=== PATIENT | male | born 1940 | race African-American/Black ===

== ENCOUNTER 2020-10-07 10:42 | Inpatient (IN) | payer BC ==
[~2020-10-07] VITALS: Ht 188 cm; Wt 90.7 kg
[~2020-10-07 10:42] MED LIST: AMLO10TA80 PO; ATOR-2 MT; GLIP10TA10 PO; LISI-649 MT; METF-416 PO; METO25TA6 MT
[2020-10-07] MEDS ORDERED: TRAZODONE (10:49)
[2020-10-07] MEDS ORDERED: SODIUM CHLORIDE 0.9% 1,000 ML IV ONE (13:00)
[2020-10-07 14:35] LABS: CHLORIDE 103 mEq/L (98-107)
[2020-10-07 14:38] LABS: INR 1.1; PROTHROMBIN TIME 11.9 sec (9.6-11.0)
[2020-10-07 14:39] LABS: ETHANOL BLOOD < 10 mg/dL
[2020-10-07 14:44] LABS: BASOPHILS % 0.2 % (0.0-2.0); HEMATOCRIT. 30.7 % (42.0-52.0); HEMOGLOBIN. 9.6 g/dL (14.0-18.0); LYMPHOCYTES % 7.3 % (20.0-50.0); MEAN CORPUSCULAR HEMOGLOBIN 28.4 pg (28.0-32.0); MEAN CORPUSCULAR VOLUME 90.9 fL (80.0-94.0); MEAN PLATELET VOLUME 9.3 fl (7.4-10.4); MONOCYTES % 4.8 % (2.0-8.0); NEUTROPHILS % 87.7 % (40.0-76.0); PLATELET 251 x1000/uL (130-400); RED BLOOD CELL COUNT 3.38 mill/uL (4.7-6.1); RED CELL DISTRIBUTION WIDTH 17.3 % (11.6-14.6)
[2020-10-07] MEDS ORDERED: ONDANSETRON 4MG ODT PO ONE (15:15)
[2020-10-07] MEDS ORDERED: CEFTRIAXONE 1 G PREMIX 50 ML IV ONE (16:45)
[2020-10-07] MEDS ORDERED: AZITHROMYCIN 500 MG in DEXT 5% WATER 250 ML IV SCH (16:45)
[2020-10-07] MEDS ORDERED: AZITHROMYCIN 500 MG in SODIUM CHLORIDE 0.9% 250 ML IV SCH (17:04)
[2020-10-07] MEDS ORDERED: ACETAMINOPHEN 650MG SUPP PR PRN (19:30)
[2020-10-07] MEDS ORDERED: DOCUSATE SODIUM 100MG CAPSULE PO PRN (19:30)
[2020-10-07] MEDS ORDERED: DIPHENHYDRAMINE 50MG/ML VIAL IV PRN (19:30)
[2020-10-07] MEDS ORDERED: NA PHOS,M-B/NA PHOS,DI-BA ENEMA 118ML PR PRN (19:30)
[2020-10-07] MEDS ORDERED: INSULIN REGULAR (HUMULIN R) 300UNITS/3ML VIAL IV NR (19:30)
[2020-10-07] MEDS ORDERED: DEXTROSE 50% WATER 50ML SYRINGE IV NR (19:30)
[2020-10-07] MEDS ORDERED: GUAIFENESIN 200MG/10ML SUGAR FREE UDC PO PRN (19:30)
[2020-10-07] MEDS ORDERED: DEXTROSE 50% WATER 50ML SYRINGE IV PRN (19:30)
[2020-10-07] MEDS ORDERED: CLONIDINE 0.1MG TABLET PO PRN (19:30)
[2020-10-07] MEDS ORDERED: LORAZEPAM 0.5MG TABLET PO PRN (19:30)
[2020-10-07] MEDS ORDERED: SODIUM BICARBONATE 8.4% 1 MEQ/ML 50ML SYR IV NR (19:30)
[2020-10-07] MEDS ORDERED: MAGNESIUM/ALUMINUM HYDROXIDE/SIMETHICONE 30ML UDC PO PRN (19:30)
[2020-10-07] MEDS ORDERED: CALCIUM GLUCONATE 1GM PREMIX 50 ML IV NR (21:00)
[2020-10-07] MEDS: MORPHINE SULFATE 2 MG/ML CPJ (NOT FOR IM USE) IV PRN (22:21)
[2020-10-07] MEDS: ONDANSETRON HCL 4MG/2ML INJ IV PRN (22:21)
[2020-10-07 22:57] LABS: BG BASE EXCESS -3.4 mmol/L (-2.0-2.0); BG CARBOXYHEMOGLOBIN 0.1 % (0.5-1.5); BG DEOXYHEMOGLOBIN 7.9 % (0.0-5.0); BG FRACTION INSPIRED OXYGEN 21; BG HCO3 ACT 19.9 mmol/L (22.0-26.0); BG METHEMOGLOBIN 0.2 % (0.0-1.5); BG OXYGEN SATURATION 92.1 % (92.0-98.5); BG OXYHEMOGLOBIN 91.8 % (94.0-97.0); BG PCO2 30.7 mmHg (35.0-45.0); BG PH 7.429 (7.350-7.450); BG PO2 68.2 mmHg (75.0-100.0); BG SAMPLE SITE RIGHT RADIAL; BG VENT MODE ROOM AIR
[2020-10-08 03:11] LABS: CREATINE KINASE MB FRACTION 6.3 ng/mL (0.5-3.6)
[2020-10-08 06:23] LABS: CHLORIDE 107 mEq/L (98-107)
[2020-10-08 06:24] LABS: BASOPHILS % 0.5 % (0.0-2.0); EOSINOPHILS % 0.2 % (0.0-5.0); HEMATOCRIT. 27.9 % (42.0-52.0); HEMOGLOBIN. 9.1 g/dL (14.0-18.0); LYMPHOCYTES % 11.1 % (20.0-50.0); MEAN CORPUSCULAR HEMOGLOBIN 29.2 pg (28.0-32.0); MEAN CORPUSCULAR VOLUME 89.1 fL (80.0-94.0); MONOCYTES % 4.5 % (2.0-8.0); NEUTROPHILS % 83.7 % (40.0-76.0); RED BLOOD CELL COUNT 3.13 mill/uL (4.7-6.1); RED CELL DISTRIBUTION WIDTH 17.3 % (11.6-14.6)
[2020-10-08 06:33] LABS: CREATINE KINASE MB FRACTION 6.5 ng/mL (0.5-3.6)
[2020-10-08 06:34] LABS: LDL CHOLESTEROL 60 mg/dL (5-100)
[2020-10-08 06:35] LABS: HDL CHOLESTEROL 31 mg/dL (40-59)
[2020-10-08 06:50] LABS: CREATINE KINASE 4339 IU/L (39-308)
[2020-10-08 08:33] LABS: PLATELET 281 x1000/uL (130-400)
[2020-10-08] MEDS: FAMOTIDINE 20MG/2ML VIAL IV SCH (10:00)
[2020-10-08] MEDS ORDERED: SODIUM POLYSTYRENE SULFONATE 15 G/60 ML BOT PO SCH (13:00)
[2020-10-08] MEDS: ENOXAPARIN 100MG/ML SYR SUBCUT SCH (13:05)
[2020-10-08 13:31] LABS: PHOSPHORUS 7.7 mg/dL (2.5-4.9)
[2020-10-08] MEDS: INSULIN LISPRO 100 UNITS/ML SUBCUT SCH ×3 (15:29→23:16)
[2020-10-08] MEDS: BLOOD SUGAR DIAGNOSTIC STRIP TEST SCH ×3 (15:29→23:16)
[2020-10-08] MEDS ORDERED: AZITHROMYCIN 500 MG in DEXT 5% WATER 250 ML IV SCH (17:00)
[2020-10-08] MEDS ORDERED: CEFTRIAXONE 1 G PREMIX 50 ML IV SCH (17:00)
[2020-10-08] MEDS: ONDANSETRON HCL 4MG/2ML INJ IV PRN (22:43)
[2020-10-08] MEDS: MORPHINE SULFATE 2 MG/ML CPJ (NOT FOR IM USE) IV PRN ×2 (22:44→23:30)
[2020-10-09] MEDS: ENOXAPARIN 100MG/ML SYR SUBCUT SCH (02:50)
[2020-10-09] MEDS: MORPHINE SULFATE 2 MG/ML CPJ (NOT FOR IM USE) IV PRN (04:34)
[2020-10-09] MEDS: BLOOD SUGAR DIAGNOSTIC STRIP TEST SCH ×4 (07:25→20:31)
[2020-10-09] MEDS: INSULIN LISPRO 100 UNITS/ML SUBCUT SCH ×4 (07:25→20:54)
[2020-10-09] MEDS: DEXT 5%/0.45% NACL 1000ML 1,000 ML IV SCH ×2 (07:59→08:00)
[2020-10-09] MEDS: FAMOTIDINE 20MG/2ML VIAL IV SCH (08:17)
[2020-10-09] MEDS: ACETAMINOPHEN 325MG TABLET PO PRN (08:17)
[2020-10-09 08:28] LABS: BASOPHILS % 0.3 % (0.0-2.0); EOSINOPHILS % 0.7 % (0.0-5.0); HEMATOCRIT. 29.7 % (42.0-52.0); HEMOGLOBIN. 9.5 g/dL (14.0-18.0); LYMPHOCYTES % 9.6 % (20.0-50.0); MEAN CORPUSCULAR HEMOGLOBIN 28.1 pg (28.0-32.0); MEAN CORPUSCULAR VOLUME 88.1 fL (80.0-94.0); MEAN PLATELET VOLUME 9.9 fl (7.4-10.4); MONOCYTES % 4.8 % (2.0-8.0); NEUTROPHILS % 84.6 % (40.0-76.0); PLATELET 287 x1000/uL (130-400); RED BLOOD CELL COUNT 3.38 mill/uL (4.7-6.1); RED CELL DISTRIBUTION WIDTH 17.3 % (11.6-14.6)
[2020-10-09] MEDS ORDERED: CEFTRIAXONE 1,000 MG in DEXTROSE 5% WATER 50 ML IV SCH ×2 (14:00→15:00)
[2020-10-09] MEDS: HYDROCODONE/ACETAMINOPHEN 5/325MG TABLET PO PRN ×2 (14:33→20:53)
[2020-10-09 14:39] VITALS: BP 110/79
[2020-10-09] MEDS ORDERED: AZTREONAM 500MG in DEXTROSE 5% WATER 50ML IV SCH (15:00)
[2020-10-09] MEDS ORDERED: AZITHROMYCIN 500 MG in DEXT 5% WATER 250 ML IV SCH (15:00)
[2020-10-09 16:00] VITALS: BP 100/66
[2020-10-09] MEDS ORDERED: AZITHROMYCIN 250 MG in DEXT 5% WATER 250 ML IV SCH (16:00)
[2020-10-09 20:00] VITALS: BP 104/56
[2020-10-09] MEDS: ONDANSETRON HCL 4MG/2ML INJ IV PRN (20:52)
[2020-10-09] MEDS: CEFTRIAXONE 1,000 MG in DEXTROSE 5% WATER 50 ML IV SCH (21:00)
[2020-10-10] VITALS: BP 128/75
[2020-10-10] MEDS: DEXT 5%/0.45% NACL 1000ML 1,000 ML IV SCH ×3 (02:04→23:10)
[2020-10-10] MEDS: ENOXAPARIN 100MG/ML SYR SUBCUT SCH ×2 (02:05→23:11)
[2020-10-10 04:00] VITALS: BP 134/71
[2020-10-10] MEDS: ONDANSETRON HCL 4MG/2ML INJ IV PRN (04:34)
[2020-10-10] MEDS: HYDROCODONE/ACETAMINOPHEN 5/325MG TABLET PO PRN (04:34)
[2020-10-10] MEDS: BLOOD SUGAR DIAGNOSTIC STRIP TEST SCH ×4 (05:48→21:00)
[2020-10-10 06:16] LABS: BASOPHILS % 0.4 % (0.0-2.0); EOSINOPHILS % 1.4 % (0.0-5.0); HEMATOCRIT. 25.9 % (42.0-52.0); HEMOGLOBIN. 8.5 g/dL (14.0-18.0); LYMPHOCYTES % 13.3 % (20.0-50.0); MEAN CORPUSCULAR VOLUME 88.2 fL (80.0-94.0); MEAN PLATELET VOLUME 9.5 fl (7.4-10.4); MONOCYTES % 4.1 % (2.0-8.0); NEUTROPHILS % 80.8 % (40.0-76.0); PLATELET 314 x1000/uL (130-400); RED BLOOD CELL COUNT 2.93 mill/uL (4.7-6.1); RED CELL DISTRIBUTION WIDTH 17.3 % (11.6-14.6)
[2020-10-10 08:00] VITALS: BP 123/71
[2020-10-10] MEDS: FAMOTIDINE 20MG/2ML VIAL IV SCH (08:30)
[2020-10-10] MEDS: INSULIN LISPRO 100 UNITS/ML SUBCUT SCH ×4 (08:34→23:05)
[2020-10-10 12:00] VITALS: BP 90/53
[2020-10-10 12:35] LABS: BG BASE EXCESS -9.6 mmol/L (-2.0-2.0); BG CARBOXYHEMOGLOBIN 0.2 % (0.5-1.5); BG DEOXYHEMOGLOBIN 5.3 % (0.0-5.0); BG HCO3 ACT 13.6 mmol/L (22.0-26.0); BG METHEMOGLOBIN 0.4 % (0.0-1.5); BG OXYGEN SATURATION 94.7 % (92.0-98.5); BG OXYHEMOGLOBIN 94.1 % (94.0-97.0); BG PCO2 22.1 mmHg (35.0-45.0); BG PH 7.408 (7.350-7.450); BG PO2 82.1 mmHg (75.0-100.0); BG SAMPLE SITE RIGHT RADIAL; BG VENT MODE ROOM AIR
[2020-10-10] MEDS ORDERED: LIDOCAINE HCL 1% 20ML VIAL (Pyxis) INJ ONE ×2 (13:10→13:30)
[2020-10-10] MEDS ORDERED: SODIUM BICARBONATE 4% (2.4MEQ) 5ML VIAL IV ONE (13:30)
[2020-10-10 16:00] VITALS: BP_SYST 121; BP_SYST 123; BP_DIAS 71; BP_DIAS 84
[2020-10-10 20:00] VITALS: BP 96/54
[2020-10-10] MEDS: CEFTRIAXONE 1,000 MG in DEXTROSE 5% WATER 50 ML IV SCH (23:10)
[2020-10-10] MEDS: METOCLOPRAMIDE HCL 10MG/2ML VIAL IV SCH (23:14)
[2020-10-11] VITALS: BP 141/78
[2020-10-11 04:00] VITALS: BP 126/69
[2020-10-11] MEDS: METOCLOPRAMIDE HCL 10MG/2ML VIAL IV SCH ×3 (06:12→17:49)
[2020-10-11] MEDS: BLOOD SUGAR DIAGNOSTIC STRIP TEST SCH ×5 (06:13→21:30)
[2020-10-11 07:36] LABS: BASOPHILS % 0.3 % (0.0-2.0); EOSINOPHILS % 1.8 % (0.0-5.0); HEMATOCRIT. 25.2 % (42.0-52.0); HEMOGLOBIN. 8.3 g/dL (14.0-18.0); LYMPHOCYTES % 13.4 % (20.0-50.0); MEAN CORPUSCULAR HEMOGLOBIN 28.7 pg (28.0-32.0); MEAN CORPUSCULAR VOLUME 86.8 fL (80.0-94.0); MEAN PLATELET VOLUME 9.3 fl (7.4-10.4); MONOCYTES % 5.2 % (2.0-8.0); NEUTROPHILS % 79.3 % (40.0-76.0); PLATELET 268 x1000/uL (130-400); RED BLOOD CELL COUNT 2.91 mill/uL (4.7-6.1); RED CELL DISTRIBUTION WIDTH 17.2 % (11.6-14.6)
[2020-10-11 08:00] VITALS: BP 145/61
[2020-10-11] MEDS: INSULIN LISPRO 100 UNITS/ML SUBCUT SCH ×4 (08:10→20:44)
[2020-10-11] MEDS: DEXT 5%/0.45% NACL 1000ML 1,000 ML IV SCH (08:46)
[2020-10-11] MEDS: MORPHINE SULFATE 2 MG/ML CPJ (NOT FOR IM USE) IV PRN ×3 (08:53→22:16)
[2020-10-11] MEDS: FAMOTIDINE 20MG/2ML VIAL IV SCH (08:53)
[2020-10-11 09:50] LABS: BG BASE EXCESS -4.5 mmol/L (-2.0-2.0); BG CARBOXYHEMOGLOBIN 0.3 % (0.5-1.5); BG DEOXYHEMOGLOBIN 3.1 % (0.0-5.0); BG FRACTION INSPIRED OXYGEN 36; BG HCO3 ACT 19.3 mmol/L (22.0-26.0); BG METHEMOGLOBIN 0.3 % (0.0-1.5); BG OXYGEN SATURATION 96.9 % (92.0-98.5); BG OXYHEMOGLOBIN 96.3 % (94.0-97.0); BG PCO2 30.8 mmHg (35.0-45.0); BG PH 7.415 (7.350-7.450); BG PO2 95.1 mmHg (75.0-100.0); BG SAMPLE SITE RIGHT BRACHIAL; BG TOTAL HEMOGLOBIN 9.2 g/dL (12.0-18.0); BG VENT MODE NASAL CANNULA
[2020-10-11 12:00] VITALS: BP 144/60
[2020-10-11] MEDS ORDERED: METOPROLOL TARTRATE 25MG TABLET PO NR (12:15)
[2020-10-11] MEDS ORDERED: POTASSIUM CHLORIDE INJ 40 MEQ in DEXT 5% WATER 250 ML IV NR (13:00)
[2020-10-11] MEDS: DILTIAZEM HCL 60MG TABLET PO SCH ×2 (14:15→17:49)
[2020-10-11 16:00] VITALS: BP 134/68
[2020-10-11] MEDS: CEFTRIAXONE 1,000 MG in DEXTROSE 5% WATER 50 ML IV SCH (20:44)
[2020-10-11 22:01] VITALS: BP 147/74
[2020-10-12] VITALS: BP 127/73
[2020-10-12] MEDS: ENOXAPARIN 100MG/ML SYR SUBCUT SCH (00:08)
[2020-10-12] MEDS: DILTIAZEM HCL 60MG TABLET PO SCH ×4 (00:08→17:20)
[2020-10-12] MEDS: METOCLOPRAMIDE HCL 10MG/2ML VIAL IV SCH ×4 (00:09→17:22)
[2020-10-12] MEDS: DEXT 5%/0.45% NACL 1000ML 1,000 ML IV SCH ×2 (01:47→15:14)
[2020-10-12 04:00] VITALS: BP 114/73
[2020-10-12] MEDS: MORPHINE SULFATE 2 MG/ML CPJ (NOT FOR IM USE) IV PRN (05:53)
[2020-10-12 08:00] VITALS: BP 111/56
[2020-10-12] MEDS: FAMOTIDINE 20MG/2ML VIAL IV SCH (09:10)
[2020-10-12] MEDS: INSULIN LISPRO 100 UNITS/ML SUBCUT SCH ×4 (09:11→21:00)
[2020-10-12 09:13] LABS: BASOPHILS % 0.5 % (0.0-2.0); EOSINOPHILS % 3.7 % (0.0-5.0); HEMATOCRIT. 25.1 % (42.0-52.0); HEMOGLOBIN. 8.2 g/dL (14.0-18.0); LYMPHOCYTES % 18.6 % (20.0-50.0); MEAN CORPUSCULAR HEMOGLOBIN 28.6 pg (28.0-32.0); MEAN CORPUSCULAR VOLUME 87.3 fL (80.0-94.0); MEAN PLATELET VOLUME 9.8 fl (7.4-10.4); MONOCYTES % 5.4 % (2.0-8.0); NEUTROPHILS % 71.8 % (40.0-76.0); PLATELET 229 x1000/uL (130-400); RED BLOOD CELL COUNT 2.88 mill/uL (4.7-6.1); RED CELL DISTRIBUTION WIDTH 17.2 % (11.6-14.6)
[2020-10-12 09:48] LABS: T4 FREE 1.31 ng/dL (0.76-1.46)
[2020-10-12 10:02] LABS: VITAMIN B12 SERUM 1432 pg/mL (211-911)
[2020-10-12 12:00] VITALS: BP 104/50
[2020-10-12] MEDS: AZITHROMYCIN 250 MG in SODIUM CHLORIDE 0.9% 250 ML IV SCH (12:18)
[2020-10-12] MEDS: ACETAMINOPHEN 325MG TABLET PO PRN (12:18)
[2020-10-12] MEDS: BLOOD SUGAR DIAGNOSTIC STRIP TEST SCH ×3 (12:40→21:00)
[2020-10-12] MEDS: FERROUS SULFATE 325MG TABLET PO SCH (15:15)
[2020-10-12 16:00] VITALS: BP 105/44
[2020-10-12 20:00] VITALS: BP 118/60
[2020-10-13] VITALS: BP 125/70
[2020-10-13] MEDS: ACETAMINOPHEN 325MG TABLET PO PRN (00:51)
[2020-10-13] MEDS: CEFTRIAXONE 1,000 MG in DEXTROSE 5% WATER 50 ML IV SCH (00:52)
[2020-10-13] MEDS: METOCLOPRAMIDE HCL 10MG/2ML VIAL IV SCH ×4 (00:53→17:17)
[2020-10-13] MEDS: ENOXAPARIN 100MG/ML SYR SUBCUT SCH (00:54)
[2020-10-13] MEDS: DEXT 5%/0.45% NACL 1000ML 1,000 ML IV SCH ×2 (01:24→10:39)
[2020-10-13 04:00] VITALS: BP 135/50
[2020-10-13] MEDS: BLOOD SUGAR DIAGNOSTIC STRIP TEST SCH ×4 (07:40→21:48)
[2020-10-13 08:00] VITALS: BP 136/67
[2020-10-13] MEDS: INSULIN LISPRO 100 UNITS/ML SUBCUT SCH ×3 (08:10→16:28)
[2020-10-13] MEDS: DILTIAZEM HCL 60MG TABLET PO SCH ×4 (08:15→17:21)
[2020-10-13 09:51] LABS: BASOPHILS % 0.4 % (0.0-2.0); EOSINOPHILS % 3.9 % (0.0-5.0); HEMATOCRIT. 27.4 % (42.0-52.0); HEMOGLOBIN. 8.9 g/dL (14.0-18.0); LYMPHOCYTES % 16.8 % (20.0-50.0); MEAN CORPUSCULAR HEMOGLOBIN 28.8 pg (28.0-32.0); MEAN PLATELET VOLUME 9.3 fl (7.4-10.4); MONOCYTES % 5.4 % (2.0-8.0); NEUTROPHILS % 73.5 % (40.0-76.0); PLATELET 268 x1000/uL (130-400); RED BLOOD CELL COUNT 3.08 mill/uL (4.7-6.1); RED CELL DISTRIBUTION WIDTH 17.4 % (11.6-14.6)
[2020-10-13] MEDS: FERROUS SULFATE 325MG TABLET PO SCH (10:38)
[2020-10-13] MEDS: FAMOTIDINE 20MG/2ML VIAL IV SCH (10:38)
[2020-10-13] MEDS: AZITHROMYCIN 250 MG in SODIUM CHLORIDE 0.9% 250 ML IV SCH (10:38)
[2020-10-13 12:00] VITALS: BP 113/62
[2020-10-13 16:00] VITALS: BP 114/63
[2020-10-14] VITALS: BP 121/71
[2020-10-14] MEDS: DILTIAZEM HCL 60MG TABLET PO SCH ×4 (00:02→18:33)
[2020-10-14] MEDS: METOCLOPRAMIDE HCL 10MG/2ML VIAL IV SCH ×4 (00:02→18:34)
[2020-10-14] MEDS: CEFTRIAXONE 1,000 MG in DEXTROSE 5% WATER 50 ML IV SCH (00:03)
[2020-10-14] MEDS: MORPHINE SULFATE 2 MG/ML CPJ (NOT FOR IM USE) IV PRN ×2 (00:04→06:10)
[2020-10-14] MEDS: ENOXAPARIN 100MG/ML SYR SUBCUT SCH (02:36)
[2020-10-14] MEDS: INSULIN LISPRO 100 UNITS/ML SUBCUT SCH ×5 (02:38→22:17)
[2020-10-14] MEDS: DEXT 5%/0.45% NACL 1000ML 1,000 ML IV SCH ×3 (02:51→18:35)
[2020-10-14 04:00] VITALS: BP 117/60
[2020-10-14] MEDS: BLOOD SUGAR DIAGNOSTIC STRIP TEST SCH ×4 (07:46→21:44)
[2020-10-14 08:00] VITALS: BP 120/60
[2020-10-14 08:42] LABS: BASOPHILS % 0.6 % (0.0-2.0); EOSINOPHILS % 3.3 % (0.0-5.0); HEMATOCRIT. 28.8 % (42.0-52.0); HEMOGLOBIN. 8.9 g/dL (14.0-18.0); LYMPHOCYTES % 16.7 % (20.0-50.0); MEAN CORPUSCULAR HEMOGLOBIN 28.2 pg (28.0-32.0); MEAN CORPUSCULAR VOLUME 91.5 fL (80.0-94.0); MEAN PLATELET VOLUME 9.4 fl (7.4-10.4); NEUTROPHILS % 72.4 % (40.0-76.0); PLATELET 227 x1000/uL (130-400); RED BLOOD CELL COUNT 3.15 mill/uL (4.7-6.1); RED CELL DISTRIBUTION WIDTH 17.8 % (11.6-14.6)
[2020-10-14] MEDS: FAMOTIDINE 20MG/2ML VIAL IV SCH (09:00)
[2020-10-14] MEDS: FERROUS SULFATE 325MG TABLET PO SCH (10:25)
[2020-10-14 12:00] VITALS: BP 130/69
[2020-10-14] MEDS: LIDOCAINE HCL 4% CREAM 76GM TUBE TP SCH ×2 (14:21→18:33)
[2020-10-14 16:00] VITALS: BP 116/64
[2020-10-14 20:00] VITALS: BP 122/63
[2020-10-14] MEDS ORDERED: AZITHROMYCIN 250 MG in SODIUM CHLORIDE 0.9% 250 ML IV SCH (21:00)
[2020-10-15] VITALS: BP 121/59
[2020-10-15] MEDS: ENOXAPARIN 100MG/ML SYR SUBCUT SCH (00:57)
[2020-10-15] MEDS: DILTIAZEM HCL 60MG TABLET PO SCH ×4 (00:58→17:56)
[2020-10-15] MEDS: METOCLOPRAMIDE HCL 10MG/2ML VIAL IV SCH ×3 (00:58→14:05)
[2020-10-15] MEDS: ACETAMINOPHEN 325MG TABLET PO PRN (01:11)
[2020-10-15 04:00] VITALS: BP 117/66
[2020-10-15 08:00] VITALS: BP 143/50
[2020-10-15] MEDS: BLOOD SUGAR DIAGNOSTIC STRIP TEST SCH ×4 (08:00→21:00)
[2020-10-15 08:21] LABS: BASOPHILS % 0.5 % (0.0-2.0); HEMATOCRIT. 23.3 % (42.0-52.0); HEMOGLOBIN. 7.6 g/dL (14.0-18.0); LYMPHOCYTES % 21.9 % (20.0-50.0); MEAN CORPUSCULAR HEMOGLOBIN 28.8 pg (28.0-32.0); MEAN PLATELET VOLUME 9.8 fl (7.4-10.4); MONOCYTES % 6.9 % (2.0-8.0); NEUTROPHILS % 65.7 % (40.0-76.0); PLATELET 253 x1000/uL (130-400); RED BLOOD CELL COUNT 2.65 mill/uL (4.7-6.1); RED CELL DISTRIBUTION WIDTH 17.4 % (11.6-14.6)
[2020-10-15] MEDS: FAMOTIDINE 20MG/2ML VIAL IV SCH (09:32)
[2020-10-15] MEDS: FERROUS SULFATE 325MG TABLET PO SCH (09:32)
[2020-10-15] MEDS: LIDOCAINE HCL 4% CREAM 76GM TUBE TP SCH ×2 (09:33→17:56)
[2020-10-15] MEDS: INSULIN LISPRO 100 UNITS/ML SUBCUT SCH ×4 (09:35→22:39)
[2020-10-15 12:00] VITALS: BP 128/60
[2020-10-15 16:00] VITALS: BP 120/52
[2020-10-15 20:00] VITALS: BP 106/76
[2020-10-15] MEDS: MORPHINE SULFATE 2 MG/ML CPJ (NOT FOR IM USE) IV PRN (22:40)
[2020-10-16] VITALS: BP 117/67
[2020-10-16] MEDS: DILTIAZEM HCL 60MG TABLET PO SCH ×4 (01:40→18:34)
[2020-10-16 04:00] VITALS: BP 145/68
[2020-10-16] MEDS: BLOOD SUGAR DIAGNOSTIC STRIP TEST SCH ×4 (07:02→21:45)
[2020-10-16 07:24] LABS: HEMATOCRIT 26.3 % (42.0-52.0); HEMOGLOBIN 8.5 g/dL (14.0-18.0); MEAN CORPUSCULAR HEMOGLOBIN 28.9 pg (28.0-32.0); RED BLOOD CELL COUNT 2.95 mill/uL (4.7-6.1); RED CELL DISTRIBUTION WIDTH 17.1 % (11.6-14.6)
[2020-10-16 08:00] VITALS: BP 128/65
[2020-10-16] MEDS: INSULIN LISPRO 100 UNITS/ML SUBCUT SCH ×4 (08:10→21:59)
[2020-10-16] MEDS: LIDOCAINE HCL 4% CREAM 76GM TUBE TP SCH ×2 (09:00→17:00)
[2020-10-16] MEDS: FERROUS SULFATE 325MG TABLET PO SCH (11:10)
[2020-10-16] MEDS: FAMOTIDINE 20MG/2ML VIAL IV SCH (11:10)
[2020-10-16 12:00] VITALS: BP 124/61
[2020-10-16 14:25] LABS: PLATELET 215 x1000/uL (130-400)
[2020-10-16] MEDS: MORPHINE SULFATE 2 MG/ML CPJ (NOT FOR IM USE) IV PRN (15:51)
[2020-10-16 16:00] VITALS: BP 129/62
[2020-10-16 20:00] VITALS: BP 136/70
[2020-10-17] VITALS: BP 112/61
[2020-10-17] MEDS: DILTIAZEM HCL 60MG TABLET PO SCH ×4 (01:05→17:34)
[2020-10-17] MEDS: MORPHINE SULFATE 2 MG/ML CPJ (NOT FOR IM USE) IV PRN ×2 (03:45→13:07)
[2020-10-17 04:00] VITALS: BP 151/74
[2020-10-17] MEDS: BLOOD SUGAR DIAGNOSTIC STRIP TEST SCH ×3 (06:17→17:04)
[2020-10-17 08:00] VITALS: BP 133/66
[2020-10-17] MEDS: INSULIN LISPRO 100 UNITS/ML SUBCUT SCH ×3 (08:10→17:42)
[2020-10-17 08:30] LABS: HEMATOCRIT 24.9 % (42.0-52.0); MEAN CORPUSCULAR HEMOGLOBIN 28.6 pg (28.0-32.0); PLATELET 256 x1000/uL (130-400); RED CELL DISTRIBUTION WIDTH 17.3 % (11.6-14.6)
[2020-10-17] MEDS: LIDOCAINE HCL 4% CREAM 76GM TUBE TP SCH ×2 (09:00→17:00)
[2020-10-17] MEDS: FAMOTIDINE 20MG/2ML VIAL IV SCH (10:34)
[2020-10-17] MEDS: FERROUS SULFATE 325MG TABLET PO SCH (10:34)
[2020-10-17 12:00] VITALS: BP 125/59
[2020-10-17 16:00] VITALS: BP 145/65
[2020-10-17 19:32] VITALS: BP 145/65
== END 2020-10-17 20:05 | DRG 871 ==
LOC: ER 10:48 → MICUSO 17:19 → SUPCPDRO 19:04 → 7WST 10-09 09:44
PROVIDERS: ADMIT Internal Medicine; ATTEND Internal Medicine
PROC: 02HV33Z Insertion of Infusion Device into Superior Vena Cava, Percutaneous Approach (ICD-10-PCS; principal; 2020-10-11)
PROC: B548ZZA Ultrasonography of Superior Vena Cava, Guidance (ICD-10-PCS; 2020-10-11)
DX: A41.89 Other specified sepsis (principal); U07.1 COVID-19; I50.33 Acute on chronic diastolic (congestive) heart failure; J12.82 Pneumonia due to coronavirus disease 2019; E46 Unspecified protein-calorie malnutrition; E87.2 Acidosis; I13.0 Hypertensive heart and chronic kidney disease with heart failure and stage 1 through stage 4 chronic kidney disease, or unspecified chronic kidney disease; M62.82 Rhabdomyolysis; N17.9 Acute kidney failure, unspecified; R17 Unspecified jaundice; I47.1 Supraventricular tachycardia; K56.7 Ileus, unspecified; I82.531 Chronic embolism and thrombosis of right popliteal vein; D64.9 Anemia, unspecified; E11.22 Type 2 diabetes mellitus with diabetic chronic kidney disease; E11.65 Type 2 diabetes mellitus with hyperglycemia; E78.5 Hyperlipidemia, unspecified; E87.5 Hyperkalemia; I71.4 Abdominal aortic aneurysm, without rupture; K56.41 Fecal impaction; M17.0 Bilateral primary osteoarthritis of knee; M48.061 Spinal stenosis, lumbar region without neurogenic claudication; M51.36 Other intervertebral disc degeneration, lumbar region; N18.9 Chronic kidney disease, unspecified; N20.0 Calculus of kidney; D50.9 Iron deficiency anemia, unspecified; G90.8 Other disorders of autonomic nervous system; R77.8 Other specified abnormalities of plasma proteins; E87.6 Hypokalemia; R74.01 Elevation of levels of liver transaminase levels; I70.0 Atherosclerosis of aorta; E78.00 Pure hypercholesterolemia, unspecified; I48.0 Paroxysmal atrial fibrillation; Z79.84 Long term (current) use of oral hypoglycemic drugs; Z79.899 Other long term (current) drug therapy; Z87.891 Personal history of nicotine dependence; Z86.73 Personal history of transient ischemic attack (TIA), and cerebral infarction without residual deficits; Z95.820 Peripheral vascular angioplasty status with implants and grafts; Z68.25 Body mass index [BMI] 25.0-25.9, adult
CPT/HCPCS: 36415; 36600; 71045; 72131; 72170; 73552; 73560; 73562; 73700; 74018; 74176; 76700; 76937; 80048; 80053; 80061; 80076; 80320; 82375; 82550; 82553; 82575; 82607; 82728; 82805; 82962; 83036; 83540; 83550; 83605; 83615; 83735; 84100; 84439; 84443; 84481; 84484; 85025; 85027; 85044; 85379; 86141; 86850; 86900; 86920; 87635; 93005; 93970; 99285; A6261; C1725; C1893; J0456; J0610; J0696; J1650; J1815; J2270; J2405; J2765; J3480; J3490; J7030; J7050; J7060; Q0162; G0480